=== PATIENT | male | born 1960 | race Caucasian/White ===

== ENCOUNTER → 2017-02-21 | Outpatient (CLI) | payer OTHER ==
[~2017-02-21] MED LIST: ANDROGEL150 GM TD; CYMBALTA30 MG PO; LEVO-T150 MCG PO; MOTRIN800 MG PO; OMEPRAZOLE40 M1 PO; SKELAXIN800 MG PO; VICODIN 5-3001 EACH PO
== END | disposition home or self-care (01) ==
LOC: CDC 12:26
DX: R00.1 Bradycardia, unspecified (principal)
CPT/HCPCS: 93000

== ENCOUNTER 2017-02-27 05:32 | Day surgery (SDC) | payer OTHER ==
[~2017-02-27] VITALS: Ht 185.4 cm; Wt 104.3 kg
[2017-02-27 06:26] VITALS: BP 125/85; BP 127/85
[2017-02-27] MEDS ORDERED: PERCOCET 5/31 TABLET PO (10:23)
[2017-02-27] MEDS ORDERED: COLACE100 MG PO (10:23)
[2017-02-27 12:10] VITALS: BP 156/80
[2017-02-27 13:14] VITALS: BP 122/71
[2017-02-27 14:14] VITALS: BP 127/84
[2017-02-27 14:15] VITALS: BP 127/84
== END 2017-02-27 14:38 | disposition home or self-care (01) ==
LOC: SDC
DX: K40.20 Bilateral inguinal hernia, without obstruction or gangrene, not specified as recurrent (principal); K42.9 Umbilical hernia without obstruction or gangrene; K21.9 Gastro-esophageal reflux disease without esophagitis; E03.9 Hypothyroidism, unspecified; N40.0 Benign prostatic hyperplasia without lower urinary tract symptoms; M54.16 Radiculopathy, lumbar region; G47.33 Obstructive sleep apnea (adult) (pediatric); Z87.891 Personal history of nicotine dependence
CPT/HCPCS: 88302; C1781; J0330; J0690; J1100; J1170; J1885; J2405; J2710; J2765; J3010